=== PATIENT | male | born 1980 | race American Indian/Alaskan Native ===

== ENCOUNTER 2016-11-19 08:03 | Inpatient (IN) | payer SELFPAY ==
[2016-11-19 08:52] LABS: Basophils % (Auto) 1.1 % (0.0-1.8); Eosinophils % (Auto) 1.3 % (0.0-4.3); Hematocrit 37.6 % (35.5-45.6); Hemoglobin 12.2 gm/dl (11.8-15.2); Mean Corpuscular HGB Conc 33 % (32-34); Mean Corpuscular Hemoglobin 28 pg (28-32); Mean Corpuscular Volume 87 fl (84-94); Platelet Count 221 K/mm3 (140-440); Red Cell Distribution Width 14.3 % (13.2-15.2); White Blood Count 6.9 K/mm3 (4.5-11.0)
[2016-11-19 09:10] LABS: Anion Gap 16 mmol/L; BUN/Creatinine Ratio 13.33; Blood Urea Nitrogen 12 mg/dL (9-20); Calcium 8.8 mg/dL (8.4-10.2); Carbon Dioxide 27 mmol/L (22-30); Chloride 98.5 mmol/L (98-107); Glucose 96 mg/dL (75-100); Potassium 4.1 mmol/L (3.6-5.0); Sodium 137 mmol/L (137-145)
[2016-11-19] MEDS ORDERED: NACL 0.9% 1000 ML IV ONE (10:11)
--- NOTE | 2016-11-19 10:11 | Emergency Department Report ---
HPI - General Chief Complaint: Syncope Time Seen by Provider: 11/19/16 09:52 - HPI HPI: Chief complaint: Syncope HPI: Patient is a 36-year-old morbidly obese -Citizen Of [place] male with a history of hypertension and smoking who states that he felt weak this morning and took a few steps and felt like he was off balance and then passed out. Patient does not remember passing out but his fiance states he leaned over and hit his head on the wall and slid down the wall without any severe trauma. Patient states he lost his voice last night and has a nonproductive slight cough. Patient states she been having intermittent sharp chest pain and some shortness of breath without sweating. Patient denies any history of DVT, fever , vomiting, nausea or diarrhea. Patient quite possibly has sleep apnea as he does snore quite a bit according to his fiance. 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 Patient states the right side of his head is slightly sore. Patient states he has chronic knee pain secondary to arthritis and that he is been trying to lose weight and lost down from 490 pounds to 460 pounds. Male yrs, age no, hypertension yes, diabetes no, obesity jenelle, elevated cholesterol no, smoker yes, cocaine use no, family history of coronary artery disease no, Mode of arrival: EMS Source: Patient and patient's fianc Began: Prior to admission Duration: Approximately 3 minutes Context: No previous history of syncope Quality: Sharp stabbing chest pain since Severity: 9 out of 10 knee pain from arthritis Improved with: Nothing Worsened with: Nothing Associated signs and symptoms: See above ED Past Medical Hx - Past Medical History Previous Medical History?: Yes Hx Hypertension: Yes Additional medical history: Allen's Palsey. Chronic Leg Pain - Surgical History Past Surgical History?: No - Social History Smoking Status: Current Every Day Smoker Substance Use Type: None - Medications Home Medications: Home Medications Medication Instructions Recorded Confirmed Last Taken Type Fluticasone [Flonase] 50 mcg INTRANASAL Q6HR 11/19/16 11/19/16 Unknown History Hydrochlorothiazide 25 mg PO DAILY 11/19/16 11/19/16 Unknown History Lisinopril [Zestril TAB] 10 mg PO DAILY 11/19/16 11/19/16 Unknown History Norvasc 10 mg PO DAILY 11/19/16 11/19/16 Unknown History Ultram 50 MG tab 50 mg PO Q6HR 11/19/16 11/19/16 Unknown History ED Review of Systems ROS: Stated complaint: SYNCOPE Other details as noted in HPI ROS Constitutional: No fever ENT: No uri symptoms Cardiovascular: See HPI Respiratory: See HPI GI: No nausea vomiting or diarrhea : No dysuria frequency or urgency, Skin: No rash Neuro: No focal weakness or numbness Psych: No depression [facility]/lymph: Chronic pedal edema Physical Exam - Physical Exam Vital Signs: Vital Signs 11/19/16 11/19/16 08:20 09:00 Temperature 98.1 F 98.4 F Pulse Rate 82 86 Respiratory 18 12 Rate Blood Pressure 153/91 Blood Pressure 153/91 156/82 [Left] O2 Sat by Pulse 96 100 Oximetry Physical Exam: GENERAL: The patient is morbidly obese HEENT: Normocephalic. Atraumatic. Extraocular motions are intact. Patient has moist mucous membranes. NECK: Supple. No meningitic signs are noted. There is no adenopathy noted. CHEST/LUNGS: Clear to auscultation. There is no respiratory distress noted. HEART/CARDIOVASCULAR: Regular. There is no tachycardia. There is no gallop rub or murmur. ABDOMEN: Abdomen is soft, nontender. Patient has normal bowel sounds. There is no abdominal distention. SKIN: There is no rash. There is bilateral 1-2+ pedal edema. There is no diaphoresis. NEURO: The patient is awake, alert, and oriented. The patient is cooperative. The patient has no focal neurologic deficits. Mild peripheral right facial droop. The patient has normal speech. MUSCULOSKELETAL: There is no deformity. Bilateral knee pain with decreased range of motion secondary to chronic pain There is no evidence of acute injury. ED Course Vital Signs 11/19/16 11/19/16 08:20 09:00 Temperature 98.1 F 98.4 F Pulse Rate 82 86 Respiratory 18 12 Rate Blood Pressure 153/91 Blood Pressure 153/91 156/82 [Left] O2 Sat by Pulse 96 100 Oximetry - Reevaluation(s) Reevaluation #1: 11/19/16 10:19 Patient is too large to fit on the CAT scan table. ED Medical Decision Making - Lab Data Result diagrams: 11/19/16 08:35 11/19/16 08:35 Laboratory Tests 11/19/16 08:35 Calcium 8.8 Troponin T < 0.010 - EKG Data -: EKG Interpreted by Me EKG shows normal: sinus rhythm Rate: normal (74) - EKG Data When compared to previous EKG there are: previous EKG unavailable Interpretation: normal EKG - Radiology Data Radiology results: report reviewed (lower extremity Doppler negative for DVT.) interpreted by me: Chest x-ray shows no acute process. Critical care attestation.: If time is entered above; I have spent that time in minutes in the direct care of this critically ill patient, excluding procedure time. ED Disposition Clinical Impression: Atypical chest pain Syncope Qualifiers: Syncope type: unspecified Qualified Code(s): R55 - Syncope and collapse Disposition: OP ADMITTED IP TO THIS HOSP Is pt being admited?: Yes Does the pt Need Aspirin: Yes Condition: Fair Instructions: Syncope (ED), Chest Pain (ED) Referrals: PRIMARY CARE, [Primary Care Provider] - 3-5 Days Time of Disposition: 12:11
[2016-11-19] MEDS ORDERED: ASPIRIN PO ONE (12:12)
--- NOTE | 2016-11-19 12:29 | Admit Criteria Form ---
Admission Criteria Documentation: SYNCOPE Clinical Indications for Admission to Inpatient Care ( Place 'X' for any and all applicable criteria): Admission is indicated for syncope and ANY ONE of the following (1)(2)(3)(4)(5) (6)(7) : [X]I. Inpatient admission required rather than observation care (Also use Syncope: Observation Care Criteria as appropriate) because of ANY ONE of the following: [ ]a) Hemodynamic instability that is severe or persistent [ ]b) Cardiac arrhythmias of immediate concern identified or strongly suspected (eg, needs electrophysiologic study) [ ]c) Acute coronary syndrome identified (Also use Myocardial Infarction or Angina Criteria form ) [ ]d) Structural cardiac disorder (eg, aortic stenosis) suspected as cause that requires immediate correction [ ]e) Respiratory symptoms (eg, dyspnea, tachypnea) that are severe or persistent [ ]f) Neurologic signs or symptoms that are severe or persistent ( eg, stroke, seizures, altered mental status) [ ]g) Severe electrolyte abnormalities requiring inpatient care [ ]h) Supplemental oxygen or respiratory treatment for over 24 hrs that are performable only in acute inpatient setting [ ]i) IV fluid to replace significant ongoing (eg, for over 24 hrs ) losses (>3 L/m2 per day) [ ]j) Continuous intravenous infusion of anticoagulation, platelet inhibitor, vasoactive, or antiarrhythmic medication(15)(16) [ ]k) Pulmonary artery catheter monitoring [ ]l) Temporary pacemaker placement(17) [ ]m) Emergent cardioversion(18) [X ]n) Other conditions, treatment or monitoring requiring inpatient admission [ ]II. Suspicion of imminently dangerous cause (eg, rare causes like pericardial tamponade, pulmonary embolism) [ ]III. Syncope causing severe injury requiring hospitalization Extended stay beyond goal length of stay may be needed for(28) [ ]a) Dangerous arrhythmia(15)(23)(27)(29) [ ]b) Myocardial ischemia [ ]c) Seizure disorder [ ]d) Syncope-related injuries The original [employer] content created by [employer] has been revised. The portions of the content which have been revised are identified through the use of italic text or in bold, and [employer] has neither reviewed nor approved the modified material. All other unmodified content is copyright [employer] [facility] [employer]. Please see references footnoted in the original [facility] edition 2016 Admission Criteria Met: Yes
--- NOTE | 2016-11-19 12:45 | XRay Report ---
CHEST 2 VIEWS INDICATION: Chest pain. COMPARISON: None similar. FINDINGS: Frontal and lateral chest radiographs demonstrate limited inspiration with mild exaggerated cardiomediastinal silhouette; mild cardiomegaly not excluded. Clear lungs. Unremarkable bones. EKG leads. CONCLUSION: No acute chest process with mild hypoinflation, as described. Thank you for the opportunity to participate in this patient's care.
[2016-11-19] MEDS ORDERED: ECOTRIN PO ONE (16:13)
[2016-11-19] MEDS ORDERED: DILAUDID IV PRN (20:35)
[2016-11-19] MEDS ORDERED: ROBITUSSIN DM PO PRN (20:35)
[2016-11-19] MEDS ORDERED: ZOFRAN IV PRN (20:35)
[2016-11-19] MEDS ORDERED: FLONASE NS SCH (21:00)
[2016-11-19] MEDS ORDERED: NON-FORMULARY (Hydrochlorothiazide 25 MG) PO SCH (21:00)
[2016-11-19] MEDS: HABITROL TD SCH (22:03)
[2016-11-19] MEDS: AMBIEN PO PRN (22:04)
[2016-11-19] MEDS: ULTRAM PO SCH (23:52)
[2016-11-20] MEDS ORDERED: ULTRAM 50 MG PO SCH
[2016-11-20] MEDS: ULTRAM PO SCH ×4 (07:01→23:04)
--- NOTE | 2016-11-20 08:55 | Event Note ---
Date: 11/19/16 See H/p in reports Syncope Morbid obesity HTN
--- NOTE | 2016-11-20 09:26 | History and Physical Report ---
CHIEF COMPLAINT: Passed out this morning. HISTORY OF PRESENT ILLNESS: A 36-year-old morbidly obese [place] male with history of hypertension and nicotine dependence, states that he took a few steps, became off balance and then passed out. He does not remember passing out. His fiance states that he leaned over and hit his head on the wall and slid down the wall without any severe trauma. He also lost his voice last night and nonproductive cough present. He has been having intermittent chest pain. Also, shortness of breath. The patient weighs about 460 pounds. PAST MEDICAL HISTORY: Significant for Allen's palsy and chronic leg pain and morbid obesity. PAST SURGICAL HISTORY: None. SOCIAL HISTORY: Smokes about a pack a day. CURRENT MEDICATIONS: Lisinopril 10 mg daily, Norvasc 10 mg daily, Ultram 50 mg q. 6, Flonase 50 mcg twice a day. REVIEW OF SYSTEMS: CONSTITUTIONAL: No fever, no chills, no weight loss, no weight gain. HEENT: No sore throat. No postnasal drip. CARDIOVASCULAR AND RESPIRATORY: Shortness of breath present also on minimal exertion, but the patient is morbidly obese, which may be contributing to his shortness of breath. GASTROINTESTINAL: No vomiting, no diarrhea. GENITOURINARY: No dysuria, no flank pain. SKIN: No rashes. CENTRAL NERVOUS SYSTEM: Syncope present. No seizures. PSYCHIATRIC: No depression. HEMATOLOGIC AND LYMPHATIC: Chronic pedal edema present. ENDOCRINE: No weight gain or weight loss. A 14-point review of system was done and essentially negative. PHYSICAL EXAMINATION: VITAL SIGNS: Blood pressure is 153/91, temperature is 98.1, pulse is 82, respirations are 18. HEENT: Unremarkable. Pupils equal and reactive. NECK: Supple. No lymphadenopathy, no thyromegaly. LUNGS: Clear to auscultation and percussion. Good air entry. CARDIOVASCULAR: S1, S2 heard. No gallop, no murmur, no rub. Apical impulse in left fifth intercostal space and midclavicular line. ABDOMEN: Soft and benign. No hepatosplenomegaly. No guarding, no rigidity. Hernial orifices are normal. EXTREMITIES: Good pedal pulses. No pedal edema. CENTRAL NERVOUS SYSTEM: Alert and oriented x 4. Nonfocal exam. DIAGNOSTIC DATA: EKG shows normal EKG. RADIOLOGY: Lower extremity Doppler negative for DVT. Chest x-ray, no acute process. LABORATORY DATA: White count is 6900, H and H is 12.2 and 37.6, platelet count is 221,000. Sodium is 137, potassium is 4.1, BUN and creatinine is 12 and 0.9, calcium is 8.8. Troponin is less than 0.010. ASSESSMENT AND PLAN: 1. Syncope. Syncope workup. Carotid duplex scan and Lexiscan ordered. The table may not be able to take him for the stress test. 2. Hypertension. Continue his lisinopril 10 mg daily and Norvasc 10 mg daily. 3. Allergic rhinitis. Continue Flonase 2 puffs b.i.d. 4. Morbid obesity. The patient counseled. 5. Nicotine dependence. Nicoderm patch resumed. 6. Deep venous thrombosis prophylaxis. Lovenox 40 mg subcutaneous daily. JOB# [id number] VSM/NTS
[2016-11-20] MEDS ORDERED: NON-FORMULARY (Norvasc 10 MG) PO SCH (10:00)
[2016-11-20] MEDS ORDERED: DOBUTamine 100 MG in D5W 92 ML IV SCH (11:00)
[2016-11-20] MEDS: NORVASC PO SCH (13:14)
[2016-11-20] MEDS: ZESTRIL PO SCH (13:15)
[2016-11-20] MEDS: FLONASE NS SCH ×2 (13:15→22:12)
[2016-11-20] MEDS: HCTZ PO SCH (13:15)
--- NOTE | 2016-11-20 15:57 | Progress Note ---
Assessment and Plan Assessment and plan: Chest pain - Cardiac events are negative - EKG normal sinus rhythm - Stress echo pending Morbid obesity - Patient constituted about diet and exercise Obstructive sleep apnea - Patient needs sleep study as an outpatient Nicotine dependence - on nicoderm -Counselled <10 minutes DVT prophylaxis - On Lovenox Disposition - Will be discharged after his stress echo result is read History Interval history: Patient was seen and evaluated this morning. Still complains chest pain. Hospitalist Physical - Physical exam Narrative exam: Not in cardiopulmonary distress. Morbidly obese Vital signs as documented. Head exam is unremarkable. No scleral icterus . Neck is without jugular venous distension, thyromegaly, or carotid bruits. Lungs are clear to auscultation. Cardiac exam reveals regular rate and Rhythm. First and second heart sounds normal. No murmurs, rubs or gallops. Abdominal exam reveals normal bowel sounds, no masses, no organomegaly and no aortic enlargement. Extremities are nonedematous and both femoral and pedal pulses are normal. 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 No focal weakness. - Constitutional Vitals: Temp Pulse Resp BP Pulse Ox 97.8 F 64 20 142/90 96 11/20/16 09:49 11/20/16 10:51 11/20/16 09:49 11/20/16 09:49 11/20/16 09:49 Results - Labs CBC & Chem 7: 11/19/16 08:35 11/19/16 08:35 Labs: Laboratory Last Values WBC 6.9 K/mm3 (4.5-11.0) 11/19/16 08:35 RBC 4.30 M/mm3 (3.65-5.03) 11/19/16 08:35 Hgb 12.2 gm/dl (11.8-15.2) 11/19/16 08:35 Hct 37.6 % (35.5-45.6) 11/19/16 08:35 MCV 87 fl (84-94) 11/19/16 08:35 MCH 28 pg (28-32) 11/19/16 08:35 MCHC 33 % (32-34) 11/19/16 08:35 RDW 14.3 % (13.2-15.2) 11/19/16 08:35 Plt Count 221 K/mm3 (140-440) 11/19/16 08:35 Lymph % (Auto) 30.2 % (13.4-35.0) 11/19/16 08:35 [place] % (Auto) 9.8 % (0.0-7.3) H 11/19/16 08:35 Eos % (Auto) 1.3 % (0.0-4.3) 11/19/16 08:35 Baso % (Auto) 1.1 % (0.0-1.8) 11/19/16 08:35 Lymph # 2.1 K/mm3 (1.2-5.4) 11/19/16 08:35 [place] # 0.7 K/mm3 (0.0-0.8) 11/19/16 08:35 Eos # 0.1 K/mm3 (0.0-0.4) 11/19/16 08:35 Baso # 0.1 K/mm3 (0.0-0.1) 11/19/16 08:35 Seg Neutrophils % 57.6 % (40.0-70.0) 11/19/16 08:35 Seg Neutrophils # 4.0 K/mm3 (1.8-7.7) 11/19/16 08:35 Sodium 137 mmol/L (137-145) 11/19/16 08:35 Potassium 4.1 mmol/L (3.6-5.0) 11/19/16 08:35 Chloride 98.5 mmol/L (98-107) 11/19/16 08:35 Carbon Dioxide 27 mmol/L (22-30) 11/19/16 08:35 Anion Gap 16 mmol/L 11/19/16 08:35 BUN 12 mg/dL (9-20) 11/19/16 08:35 Creatinine 0.9 mg/dL (0.8-1.5) 11/19/16 08:35 Estimated GFR > 60 ml/min 11/19/16 08:35 BUN/Creatinine Ratio 13.33 % 11/19/16 08:35 Glucose 96 mg/dL (75-100) 11/19/16 08:35 Calcium 8.8 mg/dL (8.4-10.2) 11/19/16 08:35 Troponin T < 0.010 ng/mL (0.00-0.029) 11/19/16 14:28
[2016-11-20] MEDS: PERCOCET 5/325 PO PRN (20:38)
[2016-11-20] MEDS: AMBIEN PO PRN (22:11)
[2016-11-20] MEDS: HABITROL TD SCH (22:12)
--- NOTE | 2016-11-20 22:47 | Treadmill Report ---
DOBUTAMINE ECHO STRESS TEST The patient was administered with intravenous dobutamine in incremental doses of 5, 10, 20, and 30 mcg per kilogram per minute. Heart rate, blood pressure, and continuous ECG were recorded during the dobutamine infusion. Baseline heart rate was 56 and increased to 127. Peak blood pressure was 196/96. Baseline ECG was sinus bradycardia. With dobutamine, there were no ST changes of ischemia. No significant dysrhythmias were noted. ECHOCARDIOGRAPHY: Baseline 2-dimensional echocardiogram demonstrated mildly dilated left ventricle, mild concentric left ventricular hypertrophy, and mild left ventricular systolic dysfunction. The estimated ejection fraction at baseline was 45%. With dobutamine, there was significant decrease in left ventricular chamber size, and increase in left ventricular systolic function with concentric thickening. The ejection fraction at peak dobutamine infusion was 65%. No regional wall motion abnormalities were noted. CONCLUSION: 1. No chest pain or angina with dobutamine. 2. No ST changes of ischemia. 3. No significant dysrhythmias. 4. Echocardiography demonstrates a normal increase in contractility with dobutamine infusion, no echocardiographic signs of dobutamine-induced myocardial ischemia. 5. Negative dobutamine echocardiographic stress test. JOB# [id number] CA/NTS
[2016-11-21] MEDS: PERCOCET 5/325 PO PRN (00:27)
[2016-11-21] MEDS: ULTRAM PO SCH ×2 (06:11→11:16)
--- NOTE | 2016-11-21 08:40 | Discharge Summary ---
Providers - Providers Date of Admission: 11/19/16 12:13 Date of discharge: 11/21/16 Attending physician: HALLE OLIVIER MD Primary care physician: CERAMIC CHEMIST Hospitalization Condition: Fair Pertinent studies: Stress echo Hospital course: Patient is a 36-year-old morbidly obese -[place] male with a history of hypertension, morbid obesity, smoker presented to the emergency department complaining of intermittent chest pain and dizziness. patient was admitted to the floor, cardiac enzymes were negative, EKG normal sinus rhythm, debutamine echo negative for ischemia. Bilateral carotid Doppler were negative, neurology was consulted and recommended to decrease his blood pressure medication and doesn't think something realted neurology. His Bp was on the lower end of normal and decrease his BP meds. I scheduled to have followup appointment with Pulmonary as an out patient for TANVIR, possible sleep study. I have counseled him about weight loss. He has been working on and lost some weight. Patient was stable at the time of discharge and discharged with PCP appointment within 1-2 weeks. Disposition: DISCHARGED TO HOME OR SELFCARE Time spent for discharge: 31 minutes - Discharge Diagnoses (1) Atypical chest pain Status: Acute (2) Syncope Status: Acute Qualifiers: Syncope type: unspecified Encounter type: E Qualified Code(s): R55 - Syncope and collapse Core Measure Documentation - Palliative Care Palliative Care/ Comfort Measures: Not Applicable - Core Measures Any of the following diagnoses?: none Exam - Physical Exam Narrative exam: Not in cardiopulmonary distress. Morbidly obese Vital signs as documented. Head exam is unremarkable. No scleral icterus . Neck is without jugular venous distension, thyromegaly, or carotid bruits. Lungs are clear to auscultation. Cardiac exam reveals regular rate and Rhythm. First and second heart sounds normal. No murmurs, rubs or gallops. Abdominal exam reveals normal bowel sounds, no masses, no organomegaly and no aortic enlargement. Extremities are nonedematous and both femoral and pedal pulses are normal. 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 No focal weakness. - Constitutional Vitals: Temp Pulse Resp BP Pulse Ox 97.6 F 61 22 110/60 96 11/21/16 05:10 11/21/16 05:10 11/21/16 06:11 11/21/16 05:10 11/21/16 05:10 Plan Activity: no restrictions Weight Bearing Status: Full Weight Bearing Diet: low fat, low cholesterol Follow up with: PRIMARY CARE, [Primary Care Provider] - 7 Days AGATA LARSON MD [Staff Physician] - 10 Days (Patient is morbidly obese and need evaluation for sleep study and CPAP.) Prescriptions: amLODIPine [Norvasc] 5 mg PO DAILY #30 tablet Hydrochlorothiazide [HCTZ] 12.5 mg PO QDAY #30 tablet Hydrochlorothiazide 25 mg PO DAILY #30 Lisinopril [Zestril TAB] 10 mg PO DAILY #30 tablet Lisinopril [Zestril TAB] 10 mg PO DAILY #30 tablet Norvasc 10 mg PO DAILY #30 traMADol [Ultram 50 MG tab] 50 mg PO Q6HR #30 tablet Ultram 50 MG tab 50 mg PO Q6HR #30
[2016-11-21 08:42] VITALS: BP 129/67
--- NOTE | 2016-11-21 10:12 | Cat Scan Report ---
Cranial CT without contrast. History: Dizzy spells. Findings: The study is significantly limited technically due to the patient's body habitus with a weight of 400+ pounds. Within these limitations, no definite mass or hemorrhage is seen. No definite evidence of infarction is seen. There are no extra-axial collections. The calvarium is intact. There is mucoperiosteal thickening in the maxillary sinuses. Mild ethmoid sinus disease with a single small polyp on the left is noted. Impression: 1. Technically limited study demonstrating no definite pathology. 2. Chronic maxillary and ethmoid sinus disease.
[2016-11-21] MEDS: FLONASE NS SCH (10:18)
[2016-11-21] MEDS: HCTZ PO SCH (10:18)
[2016-11-21] MEDS: NORVASC PO SCH (10:18)
[2016-11-21] MEDS: ZESTRIL PO SCH (10:18)
--- NOTE | 2016-11-21 10:42 | Consultation ---
History of Present Illness Consult date: 11/21/16 Requesting physician: HALLE OLIVIER Reason for Consult: syncope, lightheadedness/dizziness Chief complaint: dizziness History of present illness: 36 YO M p/w episodic lightheadedness when he changes position since 11/19. On that date while walking to get to kitchen he felt lightheaded and lost consciousness. There was no motor convulsive activity, tongue bite or incontinence. Sx have recurrently happened when going for lying to seated to standing. sx relieved by laying flat. Duration of sx is seconds to minutes. There are no temporal factors beyond recurrence today after micturating at 9:20 AM. Severity was such to cause LOC on 11/19 Past History Past Medical History: hypertension Past Surgical History: No surgical history Social history: single, lives with family Family history: hypertension Medications and Allergies Allergies Allergy/AdvReac Type Severity Reaction Status Date / Time Mustard Allergy Mild Hives Uncoded 11/19/16 08:30 Home Medications Medication Instructions Recorded Confirmed Last Taken Type Fluticasone [Flonase] 50 mcg INTRANASAL Q6HR 11/19/16 11/19/16 Unknown History Hydrochlorothiazide 25 mg PO DAILY #30 11/21/16 Unknown Rx Lisinopril [Zestril TAB] 10 mg PO DAILY #30 tablet 11/21/16 Unknown Rx Norvasc 10 mg PO DAILY #30 11/21/16 Unknown Rx Ultram 50 MG tab 50 mg PO Q6HR #30 11/21/16 Unknown Rx Active Meds: Active Medications Amlodipine Besylate (Norvasc) 10 mg PO DAILY [facility] Last Admin: 11/21/16 10:18 Dose: 10 mg Fluticasone Propionate (Flonase) 50 mcg NS BID [facility] Last Admin: 11/21/16 10:18 Dose: 50 mcg Guaifenesin (Robitussin Dm) 10 ml PO Q4H PRN PRN Reason: Coughing Last Admin: 11/19/16 22:04 Dose: 10 ml Hydrochlorothiazide (Hctz) 25 mg PO QDAY [facility] Last Admin: 11/21/16 10:18 Dose: 25 mg Lisinopril (Zestril) 10 mg PO DAILY [facility] Last Admin: 11/21/16 10:18 Dose: 10 mg Nicotine (Habitrol) 21 mg TD QDAY@2200 [facility] Last Admin: 11/20/16 22:12 Dose: 21 mg Ondansetron HCl (Zofran) 4 mg IV Q4H PRN PRN Reason: Nausea And Vomiting Last Admin: 11/19/16 22:04 Dose: 4 mg Oxycodone/Acetaminophen (Percocet 5/325) 1 tab PO Q4H PRN PRN Reason: Pain, Moderate (4-6) Last Admin: 11/21/16 00:27 Dose: 1 tab Tramadol HCl (Ultram) 50 mg PO Q6HR [facility] Last Admin: 11/21/16 06:11 Dose: 50 mg Zolpidem Tartrate (Ambien) 5 mg PO QHS PRN PRN Reason: Sleep Last Admin: 11/20/16 22:11 Dose: 5 mg Review of Systems All systems: negative Neurological: weakness, syncope, balance difficulties Physical Examination - Vital Signs Vital Signs: Vital Signs Resp 15 11/19/16 08:12 - Constitutional General appearance: comfortable - EENT EENT: Present: ATNC, PERRL, mucous membranes dry - Respiratory Respiratory: Present: chest non-tender, normal breath sounds, no respiratory distress - Cardiovascular Cardiovascular: Present: regular rate Extremities: Present: no peripheral edema bilatateraly, no clubbing, cyanosis, no inflammation, no ischemia or petechiae - Gastrointestinal Gastrointestinal: Present: normoactive bowel sounds, non-distended - Integumentary Integumentary: Present: normal - Neurologic Cranial nerve examination: PERRL, EOMI, VFF, V1/V2/V3 grossly intact, face symmetric, tongue midline, intact, intact shoulder shrug, intact cough reflex, Intact Vestibulo-ocular r, intact corneal reflex, normal palatal elevation Speech examination: intact Sensorimotor examination: intact Detailed motor examination: full strength in all panfilo Motor examination - right side: 5/5: biceps, triceps, wrist flexion, wrist extension, converter supervisor, hip flexors, knee extensors, dorsiflexion, toe extension (EHL) , plantarflexion Motor examination - left side: 5/5: biceps, triceps, wrist flexion, wrist extension, converter supervisor, hip flexors, knee extensors, dorsiflexion, toe extension (EHL) , plantarflexion Detailed sensory examination: intact, light touch, temperature, vibration Reflex and gait examination: normal gait Reflexes: 1+: ankle, 2+: bicep, knee, tricep - Musculoskeletal Musculoskeletal: Present: no fluid collection, no pain, normal range of motion - Psychiatric Psychiatric: Present: mood/affect appropriate, cooperative Results - Laboratory Findings CBC and BMP: 11/19/16 08:35 11/19/16 08:35 - Diagnostic Findings Additional findings: CTH normal Assessment and Plan 36 YO M Hx HTN on multiple meds p/w recurrent episodic classic presyncopal syndrome after changing position and micturation c/b 1 episode of LOC. There was no premonitory epileptiform activity e.g aura/automatism, motor convulsive activity or post episode residual deficit e.g. post ictal state to suggest seizure. I suspect orthostatic syncope. CTH neg. Orthostatic vital signs borderline positive. Plan and Recommendation: 1. Telemetry bed w/ Q4 hour neuro checks 2. Labs: Serum/Urine Tox, UA/UCx, Electrolytes especially Na, Ca, Mg, and Glucose, TSH, 3. AED therapy: No clear indication for AED therapy 4. Conservative management e.g. tapering of BP meds, Indra Hose, encourage PO intake, etc 5. With seemingly clear etiology for syncope there is no clear grounds for driving privilege withdrawal 6. We can revisit as needed. Pt neurologically clear for discharge.
--- NOTE | 2016-11-23 07:48 | Vascular Lab Report ---
CAROTID DUPLEX STUDY: RIGHT PSVEDV CCA [id number] CCA [id number] ICA PROX:[id number] ICA MID:[id number] ICA [id number] ECA: 80 VERT: 39 17 LEFT PSVEDV CCA [id number] CCA DIST:[id number] ICA PROX:[id number] ICA MID:[id number] ICA DIST:[id number] ECA: 47 VERT: 42 22 REASON FOR EXAM: Carotid artery stenosis/syncope. COMMENTS ON THE RIGHT: Doppler frequency analysis is consistent with 16 to 49 percent diameter reduction of the internal carotid artery. Minimal amount of plaque is seen. The common carotid artery is patent. The external carotid artery is patent. The vertebral artery has antegrade flow. COMMENTS ON THE LEFT: Doppler frequency analysis is consistent with 50 to 79 percent diameter reduction by velocity criteria only of the internal carotid artery. Minimal amount of plaque is seen. The common carotid artery is patent. The external carotid artery is patent. The vertebral artery has antegrade flow. IMPRESSION: 16 to 49 percent diameter reduction of the right internal carotid artery. 50 to 79 percent diameter reduction by velocity criteria only of the left internal carotid artery. Clinical correlation recommended.
== END 2016-11-21 13:55 | disposition home or self-care (01) | DRG 313 ==
LOC: ED 08:03 → 4A 12:13
PROVIDERS: ADMIT Internal Medicine; ATTEND Internal Medicine
DX: R07.89 Other chest pain (principal); Z68.44 Body mass index [BMI] 60.0-69.9, adult; R55 Syncope and collapse; E66.01 Morbid (severe) obesity due to excess calories; I10 Essential (primary) hypertension; G51.0 Bell's palsy; G89.29 Other chronic pain; G47.33 Obstructive sleep apnea (adult) (pediatric); Z71.6 Tobacco abuse counseling; M13.869 Other specified arthritis, unspecified knee; F17.200 Nicotine dependence, unspecified, uncomplicated; J30.9 Allergic rhinitis, unspecified; Z82.49 Family history of ischemic heart disease and other diseases of the circulatory system; Z88.8 Allergy status to other drugs, medicaments and biological substances
CPT/HCPCS: 36415; 70450; 71020; 80048; 84484; 85025; 93005; 93010; 93017; 93320; 93325; 93350; 93880; 93970; 96360; 99406; J1170; J1250; J2405; J7030